=== PATIENT | female | born 1980 | race Caucasian/White ===

== ENCOUNTER 2024-08-15 16:00 | Emergency (ER) | payer MEDICARE, MEDICAID, SELFPAY ==
--- NOTE | ~2024-08-15 | XR_ITS ---
CHEST RADIOGRAPH, PA AND LATERAL CLINICAL HISTORY: chest pain . COMPARISON: None available TECHNIQUE: PA and lateral views of the chest. FINDINGS The cardiomediastinal silhouette is unremarkable. The lungs are clear. Visualized osseous structures and soft tissues are unremarkable. IMPRESSION: No focal infiltrate or effusion. Reviewed, dictated and finalized at location A.
[2024-08-15 16:10] VITALS: BP 149/100; PULSE 83; RESP 16; TEMP 36.6; O2SAT 99
--- NOTE | 2024-08-15 16:14 | ECG_ITS ---
Test Date: 2024-08-15 16:16:42 Measurements Intervals [place] Rate: 77 P: 22 SD: 184 QRS: 17 QRSD: 81 T: 30 QT: 372 QTc: 423 Interpretive Statements SINUS RHYTHM NONSPECIFIC T-WAVE ABNORMALITY ABNORMAL ECG No previous ECG available for comparison Electronically Signed On 08-16-2024 12:12:02 CDT by Bereket Bird M.D.
[2024-08-15 16:38] LABS: Basophils Percent Auto 0.5 % (0.2-1.2); Eosinophils Absolute Auto 0.1 K/mm3 (0-0.3); Eosinophils Percent Auto 2.1 % (0-4.4); Hematocrit 43.9 % (37.0-47.0); Hemoglobin 14.1 g/dL (12.0-15.0); Immature Granulocyte Absolute 0.02 K/mm3 (0.00-0.031); Immature Granulocyte Percent A 0.3 % (0-0.5); Lymphocytes Absolute Auto 2.13 K/mm3 (0.9-3.2); Lymphocytes Percent Auto 34.4 % (18.3-44.2); Mean Corpuscular HGB Conc 32.1 g/dl (32-36); Mean Corpuscular Hemoglobin 29.9 pg (26-34); Mean Platelet Volume 9.6 fl (7.4-10.4); Monocytes Absolute Auto 0.6 K/mm3 (0.1-0.6); Neutrophils Absolute Auto 3.3 K/mm3 (1.3-6.7); Neutrophils Percent Auto 53.7 % (45.5-73.1); Platelet Count Result 233 k/mm3 (150-375); Red Blood Count 4.72 M/mm3 (4.2-5.4); Red Cell Distribution Width 13.2 % (11.5-14.5); White Blood Count 6.2 K/mm3 (4.5-10.0)
[2024-08-15 16:47] LABS: Alanine Aminotransferase 31 U/L (6-35); Albumin Level 4.8 g/dL (3.5-5.1); Alkaline Phosphatase 62 U/L (38-126); Anion Gap 10 mmol/L (4-12); Aspartate Amino Transferase 28 U/L (14-36); Bilirubin,Total 0.3 mg/dL (0.2-1.3); Blood Urea Nitrogen 10 mg/dL (7-17); Calcium 9.4 mg/dL (8.4-10.2); Carbon Dioxide 29 mmol/L (22-30); Chloride 102 mmol/L (98-107); Estimated Glomerular Filt Rate > 60; Glucose 96 mg/dL (65-110); Lipase 39 U/L (23-300); Potassium 3.8 mmol/L (3.4-5.0); Sodium 141 mmol/L (137-145)
[2024-08-15 16:50] LABS: Partial Thromboplastin Time 23.3 Seconds (22.3-36.8)
--- NOTE | 2024-08-15 16:50 | ED.CHESTPAIN ---
HPI - Chest Pain General Chief Complaint: Chest Pain Stated Complaint: Sharp Chest pain since Wednesday Focused HPI: This is a 43-year-old female who presents to the ED for chief complaint of chest pain intermittent over the past 6 months. States that worsened today after she blew her nose. Reports of pain to the left side of the chest and it does not radiate. Denies association with nausea, vomiting, syncope, diaphoresis, numbness, weakness. She thinks the pain may be due to her recent medication changes regarding weight loss medications. Denies heart history or history of diabetes. She does smoke cigarettes. Denies recent illness, fevers, chills, shortness of breath, abdominal pain. GENERAL: Well-appearing, well-nourished, and in no acute distress. HEAD: Normocephalic, atraumatic. CHEST: Clear to auscultation. No respiratory distress. HEART: Regular rate and rhythm. NEURO: Alert and oriented x3. Patient screened in triage and initial orders placed. Additional care and disposition to be based upon diagnostic testing and treatment. Source: patient Mode of arrival: ambulatory Limitations: no limitations Related Data Allergies Allergy/AdvReac Type Severity Reaction Status Date / Time No Known Allergies Allergy Unverified 08/15/24 16:01 Course Vital Signs Vital signs: Vital Signs Temperature 97.8 F 08/15/24 16:10 Pulse Rate 83 08/15/24 16:10 Respiratory Rate 16 08/15/24 16:10 Blood Pressure 149/100 H 08/15/24 16:10 Pulse Oximetry 99 08/15/24 16:10 Temperature 97.8 F 08/15/24 16:10 Pulse Rate 83 08/15/24 16:10 Respiratory Rate 16 08/15/24 16:10 Blood Pressure 149/100 H 08/15/24 16:10 Pulse Oximetry 99 08/15/24 16:10 MDM - Chest Pain Lab Data 08/15/24 16:26 08/15/24 16:26 Labs: Lab Results 08/15/24 Range/Units 16:26 WBC 6.2 (4.5-10.0) K/mm3 RBC 4.72 (4.2-5.4) M/mm3 Hgb 14.1 (12.0-15.0) g/dL Hct 43.9 (37.0-47.0) % MCV 93.0 (80-100) fl MCH 29.9 (26-34) pg MCHC 32.1 (32-36) g/dl RDW 13.2 (11.5-14.5) % Plt Count 233 (150-375) k/mm3 MPV 9.6 (7.4-10.4) fl Immature Gran % (Auto) 0.3 (0-0.5) % Neut % (Auto) 53.7 (45.5-73.1) % Lymph % (Auto) 34.4 (18.3-44.2) % [place] % (Auto) 9.0 H (2.6-8.5) % Eos % (Auto) 2.1 (0-4.4) % Baso % (Auto) 0.5 (0.2-1.2) % Lymph # (Auto) 2.13 (0.9-3.2) K/mm3 [place] # (Auto) 0.6 (0.1-0.6) K/mm3 Eos # (Auto) 0.1 (0-0.3) K/mm3 Baso # (Auto) 0.0 (0.0-0.1) K/mm3 Abs Immat Gran (auto) 0.02 (0.00-0.031) K/mm3 Absolute Neuts (auto) 3.3 (1.3-6.7) K/mm3 Absolute Nucleated RBC 0.000 (0.0-0.012) K/mm3 Nucleated RBC % 0.0 (0.0-0.2) % PT Pending INR Pending APTT Pending Sodium 141 (137-145) mmol/L Potassium 3.8 (3.4-5.0) mmol/L Chloride 102 (98-107) mmol/L Carbon Dioxide 29 (22-30) mmol/L Anion Gap 10 (4-12) mmol/L BUN 10 (7-17) mg/dL Creatinine 0.81 (0.7-1.0) mg/dL Estim Creat Clear Calc Not Reportable Estimated GFR > 60 (59 - ) Glucose 96 (65-110) mg/dL Calcium 9.4 (8.4-10.2) mg/dL Total Bilirubin 0.3 (0.2-1.3) mg/dL AST 28 (14-36) U/L ALT 31 (6-35) U/L Alkaline Phosphatase 62 (38-126) U/L Troponin I Pending Total Protein 8.0 (6.3-8.2) g/dL Albumin 4.8 (3.5-5.1) g/dL Lipase 39 (23-300) U/L Discharge Plan Discharge Patient Language: Romanian Follow-up/Referrals: PHYSICIAN,DELIVERY ASSISTANT [Primary Care Provider] -
[2024-08-15 16:59] LABS: Troponin I < 0.012 ng/mL (0.000-0.034)
--- OUTSIDE RECORDS SUMMARY | 2024-08-15 17:50 | XMS_ITS | Data Portability ---
Author Organization [place] [facility], Main Office Address [address] [place] [address] Care Team Providers Care Shipping Order Clerk Name Role Phone MEEK HUNT Primary Care Provider MEEK HUNT Referring Provider EDNA CORONEL Metrology Technician SILVESTRE CAO Senior Technologist Assessment Encounter Date Assessment Date Assessment LastModified by Organization Details LastModified Time 05/16/2024 05/16/2024 This note is dictated and transcribed by [employer] Fluency Direct Software. Environmental Epidemiologist variances may occur. Despite proofreading, typographical errors may occur. Occasional wrong-word or '[id number]' substitutions may have occurred due to the inherent limitations of voice recording. Read the chart carefully and recognize, using context, where substitutions have occurred. [email or web address] Not available 05/16/2024 12:00:58 06/07/2024 06/07/2024 Time spent with patient included: preparing to see patient by reviewing tests, obtaining and reviewing history, medical examination and evaluation, counseling and educating the patient, ordering medications and tests, documenting clinical information in EHR, independently interpreting results and communicating results to the patient for a total of 45 minutes. Not available 06/07/2024 15:03:28 08/02/2024 08/02/2024 Time spent with patient included: preparing to see patient by reviewing tests, obtaining and reviewing history, medical examination and evaluation, counseling and educating the patient, ordering medications and tests, documenting clinical information in EHR, independently interpreting results and communicating results to the patient for a total of 40 minutes. Not available 08/02/2024 11:28:14 Plan of Treatment Reminders Order Date Submit Date Provider Last Modified By Organization Details Last Modified Time Details Appointments Post-Op 15 2024 10:00A M SHAHRZAD Smith Not available Not available Not available Any 15 2024 01:15P M Meek Hunt MD Not available Not available Not available Establish ed Patient 15 2024 02:15P M Silvestre Cao DPM Not available Not available Not available Procedure 15 2024 09:00A M Chandu Figueroa MD Not available Not available Not available Lab None recorded. Referral ENT surgery referral - Please call patient to schedule. 2024 025 [email or web address] 2 [facility], [address], [place], [address], 08/14/2024 08:57:41 Procedures None recorded. Surgeries tonsillec korina (SURG) 2024 025 [email or web address] Not available 06/30/2024 08:20:[address], chest, w/o contrast 2024 025 [facility], [address], [place], [address], 08/02/2024 16:56:08 MAMMO, screening , bilateral - Please call patient to schedule. [address], [address], [place], [address], 05/15/2024 09:07:34 CT, chest, w/o contrast - Please call patient to schedule. [address], [address], [place], [address], 05/15/2024 09:07:34 Medication Orders None recorded. Patient TargetsNo targets recorded. Patient Instructions Encounter Date Encounter Id Patient Instructions Last Modified By Organization Details Last Modified Time 04/12/2024 [id number] dementia rating scale-2* Not available 04/12/2024 14:10:04 depression screening* Not available 04/12/2024 14:10:04 alcohol misuse* Not available 04/12/2024 14:10:04 multi-dimensiona l health assessment questionnaire* Not available 04/12/2024 14:10:04 advance directiv es: care instructions Not available 04/12/2024 14:10:04 advance care planning: care instructions Not available 04/12/2024 14:10:04 [place] Advance Directives Not available 04/12/2024 14:10:04 Personalized Hea lt Plan and Screening Recommendations Advance Directives - Do you have one? No I recommend consulting with an [employer], family member, or friend to assist you. Advance Directives - Do we have your advance directive on file in your health record? No, please bring in a copy at your earliest convenience Primary Prevention/Interven tion (prevents or decreases the chance of common diseases from occurring) Smoking Risk: Smoker Refer to attached smoking cessation handouts Refer to attached handouts and prescription will be sent to pharmacy Continue to consider stopping smoking and call if we can assist you Alcohol Misuse Screening: Negative Weight: Appropriate Overwei ght Physical activity: Need more exercise/physical activity minimum of 10-20 minutes of activity that causes mild breathlessness/day Nutrition: Good Average Refer to attached handout Heart-Healthy Diet: After Your Visit Fall Risk (screened today): Low Vaccines Pneumococcal: Influenza: Chronic Disease Risks Stroke: Low Risk I have no recommendations Heart Attack: Low risk I have no recommendations Clogging of the Arteries: Low risk I have no recommendations Diabetes: Low Risk I have no recommendations Secondary Prevention/Interven tion (detects treatable diseases before they may cause symptoms, disability, or ) Breast Cancer Screening with mammogram: Your next mammogram: Ordered Recommended today Cervical/Uterine/Ov sivan Cancer Screening: Your next PAP/pelvic in: Referral to cop examiner Recomm ended today Osteoporosis Screening: No screening necessary Date Screening Last Performed: Colon Cancer Screening: No screening necessary Date Screening Last Performed: Eye Disease Screening: Ordered Recommended today Dementia Risk: Low I have no recommendations Depression Screening: Negative Active diagnosis, Continue current treatment plan [email or web address] Not available 04/12/2024 13:01:05 Reason for Referral ENT Surgery Referral for Enl arged tonsil Please call patient to schedule. Referring Physician: Edna Coronel, Pulmonary Disease, Encounter Date: 06/07/2024 Results Created Date Observation Date Name Description Value Unit Range Abnormal Flag Note LastModifiedBy Organization Detail LastModifiedTime 03/15/2002/07/2016 polys omnog sharyn, diagn ostic , 6 yrs or older No observ ation record ed. [email or web address] Not Available 2023 13:50:09 03/15/20 24 08/15/2016 polys omnog sharyn, titra tion study No observ ation record ed. [email or web address] Not Available 2023 13:50:10 03/15/20 24 03/14/2016 polys omnog sharyn, titra tion study No observ ation record ed. [email or web address] Not Available 2023 13:50:10 03/15/20 24 03/09/2024 XR, chest , 2 view No observ ation record ed. [email or web address] [facility] [place] [address] [place], [address], 03/22/2024 13:50:11 03/27/20 24 03/20/2024 polys omnog sharyn, split night No observ ation record ed. [email or web address] [facility] [address] [place], [address], 03/30/2024 09:46:18 03/29/20 24 04/13/2023 CT, abdom en + pelvi s, w/ contr ast No observ ation record ed. [email or web address] Not Available 2023 09:46:19 Result Notes None recorded. Problems Name Problem SNOMED Code Status Onset Date Resolution Date Notes Provider Name and Address Organization Details Recorded Time Hypothyro idism 97252290 Active 2022 YUNG Galvan, [facility] 3 10:54:53 Pneumonia 745127404 Completed 202205/18/2023 Stevo Gonzalez MD [address] [facility], [place], [address] , [facility] 4 11:08:48 Bipolar disorder 63197715 Active 2022 Salina Garciabe an RMA null, [place] [facility] 3 10:54:42 History of drug abuse 253389384 Active 2022 Salina Stmarlonbe an, RMA null, [place] [facility] 3 10:54:51 Obesity 840083203 Active 2022 Salina Stuffpricebe an, RMA null, [place] [facility] [place] [facility] 3 10:54:58 Sleep apnea 32934928 Active 2022 Salina Stuffpricebe an, RMA null, [place] [facility] 3 10:56:56 Smoker 15528645 Active 2022 Salina Stuffpricebe an, RMA null, [facility] 3 10:56:58 Gallstone 102710253 Active 2022 Salina Stuffpricebe an, RMA null, [facility] 3 10:54:46 Plantar wart of left foot 812806237243 53397 Active 2022 Meek Hunt MD [address], [address] [place] [address] [facility] 3 11:11:11 Allergic rhinitis 14605721 Active 2023 Salina niño, RMA null, [facility] 4 11:32:54 Multiple nodules of lung 267187645 Active 2023 Salina Stufflebe an, RMA null, [facility] 4 11:52:35 Constipat ion 16594535 Active 2023 Salina Stuffpricebe an, RMA null, [place] [facility] 4 11:52:35 Dystrophi a unguium 68861025 Active 2023 Silvestre Cao DPM [address], [address], [place], [address], [facility] 4 12:00:59 Obstructi ve sleep apnea syndrome 99304465 Active 2024 Edna Coronel NP [address], [address], [place], [address], [facility] 5 14:21:27 Hypersomn ia with sleep apnea 66323392 Active 2024 Edna Coronel NP [address], [address], [place], [address], [facility] 5 14:22:25 Enlarged tonsil 426136867 Active 2024 Edna Coronel NP [address], [address], [place], [address], [facility] 5 14:28:39 Chronic tonsillit is 79991889 Active 2024 Chandu Figueroa MD [address], [address], [place], [address], [facility] 5 15:22:15 Notes:[facility] diagnostic sleep study 02/07/16 sleep onset = 3.5 minutes, REM onset = 99 minutes, AHI = 46, REM AHI = 56, supine RDI = 66, PLMI = 2 [facility] titration sleep study 03/14/16 sleep onset = 2 minutes, REM onset = 90 minutes, ResMed Loya FX nasal pillows @ 8 cmH2O, PLMI = 0.0 [facility] titration sleep study 08/15/16 sleep onset = 6 minutes, REM onset = 47 minutes, ResMed Loya FX nasal pillows @ 9 cmH2O, PLMI = 0.0 [facility] split sleep study 03/20/24 sleep onset = 10.5 minutes, REM onset = 87 minutes, AHI = 20, REM AHI = 40, ResMed small AirFit F20 full face mask @ 14-17 cmH2O Medical History: Nicotine use Bipolar depression Rhinitis Bibasilar atelectasis Persistent early REM onset Obesity with mod OSAHS, AHI = 20, 03/20/24, on autoCPAP c/o IVRC Hypothyroidism Hepatitis C Cholelithiasis Procedure History: 2004, 2013 Problem Notes None recorded. Procedures Surgical History Date Name Laterality Status Provider Name and Address Organization Details Recorded Time 04/12/20 Medicare Wellness CPT Code, subsequent completed Azeb Michaud RN [facility] [employer] [employer] [facility] 04/12/2024 12:45:17 04/12/20 Advanced Care Planning completed Azeb Michaud RN [facility] [employer] [facility] 04/12/2024 12:52:49 01/26/20 Toenail avulsion completed Silvestre Cao DPM [address], [place], [address], [facility] [employer] [facility] [employer] 01/26/2024 11:23:03 10/12/19 24 Nail Debridement completed Silvestre Cao DPM [address], [place], [address], [facility] [employer] [facility] [employer] 10/12/2023 13:13:21 10/12/19 24 Destruction lesion (cryo, hyfrecation, scissors or chemical) completed Silvestre Cao DPM [address], [address], [place], [address], [facility] [employer] [facility] 10/12/2023 13:14:23 08/03/19 24 wart canthrone procedure completed Silvestre Cao DPM [address], [place], [address], [facility] [employer] [facility] 08/03/2023 15:23:03 07/20/19 24 wart canthrone procedure completed Silvestre Cao DPM [address], [place], [address], [facility] [employer] [facility] 07/20/2023 11:36:12 delivery completed Sue Schroeder [facility] [employer] [facility] 07/20/2023 10:34:35 Imaging Results Imaging Date Name Status LastModified by Organ atpending sale to [facility] Details LastModified Time 02/07/2016 polysomnogram, diagnostic, 6 yrs or older [place] [email or web address] Information not available 03/22/2024 13:50:09 08/15/2016 polysomnogram, titration study completed Information not available 03/22/2024 13:50:10 03/14/2016 polysomnogram, titration study completed Information not available 03/22/2024 13:50:10 03/09/2024 XR, chest, 2 view completed [email or web address] [facility] [address] [place], [address], 03/22/2024 13:50:11 03/20/2024 polysomnogram, split night completed [email or web address] [facility] [address] [place], [address], 03/30/2024 09:46:18 04/13/2023 CT, abdomen + pelvis, w/ contrast completed Information not available 03/30/2024 09:46:19 Procedure Notes None recorded. Medical Equipment None Reported. Allergies No known drug allergies Medications Name Sig Start Date Stop Date Status Note LastModified by Organization Details LastModified Time levothyro xine 175 mcg tablet TAKE 1 TABLET BY MOUTH EVERY DAY active Not Available Not Available No t Available levothyro xine 137 mcg tablet TAKE 1 TABLET BY MOUTH EVERY DAY active Not Available Not Available No t Available cetirizin e 10 mg tablet TAKE 1 TABLET BY MOUTH EVERY DAY 12/29 completed Not Available Not Available Not Available azithromy tima 250 mg tablet TAKE 2 TABLETS BY MOUTH TODAY, THEN TAKE 1 TABLET DAILY FOR 4 DAYS 05/17 completed Not Available Not Available Not Available senna 8.6 mg tablet TAKE 4 TABLETS BY MOUTH TWICE A DAY 04/21 completed Not Available Not Available Not Available ondansetr on 8 mg disintegr ating tablet DISSOLVE 1 TABLET ON THE TONGUE 3 TIMES DAILY NEEDED 12/29 completed Not Available Not Available Not Available cephalexi n 500 mg capsule TAKE 1 CAPSULE BY MOUTH EVERY 12 HOURS FOR 10 DAYS 05/17 completed Not Available Not Available Not Available levothyro xine 150 mcg tablet TAKE 1 TABLET BY MOUTH EVERY DAY 03/09 completed Not Available Not Available Not Available levofloxa tima 750 mg tablet Take 1 tablet every day by oral route. 05/17 completed Not Available Not Available Not Available methylpre dnisolone 4 mg tablets in a dose pack TAKE 1 DOSE PACK BY ORAL ROUTE. DIRECTED PER PACKAGE 04/21 completed Not Available Not Available Not Available albuterol sulfate HFA 90 mcg/actua tion aerosol inhaler INHALE 2 PUFFS BY MOUTH 4 TIMES A DAY 07/19 completed Not Available Not Available Not Available ketoconaz ole 2 % topical cream APPLY TO THE AFFECTED AREA(S) right great toenail BY TOPICAL ROUTE ONCE DAILY 06/07 completed Not Available Not Available Not Available fluticaso ne propionat e 50 mcg/actua tion nasal spray,stefani pension SPRAY 1 SPRAY INTO EACH NOSTRIL EVERY DAY 2023 active MIROSLAVA 04/12/24 NOV 08/09/24 ok to rf Not Available Not Available Not Available amoxicill in 875 mg-potass ium clavulana te 125 mg tablet TAKE 1 TABLET BY MOUTH 2 TIMES A DAY FOR 7 DAY 12/29 completed Not Available Not Available Not Available neomycin- polymyxin -hydrocor t 3.5 mg-10,000 unit/mL-1 % ear drops,stefani p 3 DROPS IN RIGHT EAR FOUR TIMES A DAY X 7 DAYS 12/29 completed Not Available Not Available Not Available bupropion HCl SR 200 mg tablet,12 hr sustained -release TAKE ONE Tablet BY MOUTH TWICE DAILY (IN THE MORNING AND IN THE EVENING) active Not Available Not Available No t Available bupropion HCl XL 300 mg 24 hr tablet, extended release TAKE 1 TABLET BY MOUTH ONCE A DAY FOR DEPRESSI ON 07/19 completed Not Available Not Available Not Available bupropion HCl XL 150 mg 24 hr tablet, extended release TAKE ONE TABLET BY MOUTH EVERY DAY 07/19 completed has been increase d to 200mg BID Not Available Not Available Not Available Wellbutri n SR 12/29 completed Not Available Not Available Not Available methadone (bulk) Once a day 60mg active Not Available Not Available No t Available Invega Sustenna 156 mg/mL intramusc ular syringe active Not Available Not Available Not Available Invega Sustenna 234 mg/1.5 mL intramusc ular syringe 08/31 completed Not Available Not Available Not Available Senexon-S 8.6 mg-50 mg tablet TAKE 2 TABLETS BY MOUTH EVERY DAY 2024 active Not Available Not Available Not Avai lable Linzess 290 mcg capsule TAKE 1 CAPSULE BY MOUTH EVERY DAY active Not Available Not Available No t Available Ozempic 0.25 mg or 0.5 mg (2 mg/3 mL) subcutane ous pen injector Inject 0.25 mg every week by subcutan eous route. 08/02 completed Not Available Not Available Not Available Zepbound 2.5 mg/0.5 mL subcutane ous pen injector INJECT 2.5MG SUBCUTAN EOUSLY ONE TIME PER WEEK 2024 active Not Available Not Available Not Maggy kohler Vitals Date Recorded Body weight Body mass index (BMI) Body height Body temperature Heart rate Oxygen saturation Oxygen saturation in Arterial blood by Pulse oximetry Systolic blood pressure Diastolic blood pressure Provider Name and Address Organization Details Last Updated DateTime 4 987546. 61 g 43.4 kg/m2 165.1 cm 97.2 [degF] 81 /min 93 % 93 % 132 mm[Hg] 82 mm[Hg] YUNG Galvan [facility] 11:52:09 Date Recorded Pain severity - 0-10 verbal numeric rating [Score] - Reported Provider Name and Address Organization Details Last Updated DateTime 04/12/2024 0 Azeb Michaud RN [facility] 04/12/2024 12:46:01 Date Recorded Body height Body mass index (BMI) Body weight Heart rate Respiratory rate Oxygen saturation Oxygen saturation in Arterial blood by Pulse oximetry Systolic blood pressure Diastolic blood pressure Provider Name and Address Organization Details Last Updated DateTime 4 165.1 cm 43.4 kg/m2 624609. 61 g 97 /min 14 /min 99 % 99 % 114 mm[Hg] 63 mm[Hg] Sue Schroeder [facility] [employer] 4 11:55:05 Date Recorded Body height Body mass index (BMI) Body weight Body temperature Heart rate Oxygen saturation Oxygen saturation in Arterial blood by Pulse oximetry Systolic blood pressure Diastolic blood pressure Provider Name and Address Organization Details Last Updated DateTime 5 165.1 cm 45 kg/m2 914790. 1 g 98.1 [degF] 82 /min 96 % 96 % 118 mm[Hg] 72 mm[Hg] Jodee Landeros MA [facility] 14:16:06 Date Recorded Body height Body mass index (BMI) Body weight Body temperature Provider Name and Address Organization Details Last Updated DateTime 06/29/2024 165.1 cm 44.4 kg/m2 237809.16 g 97.7 [degF] Analilia Garcia RN [facility] 06/29/2024 15:17:00 Date Recorded Body height Body mass index (BMI) Body weight Body temperature Heart rate Oxygen saturation Oxygen saturation in Arterial blood by Pulse oximetry Systolic blood pressure Diastolic blood pressure Provider Name and Address Organization Details Last Updated DateTime 165.1 cm 43.9 kg/m2 462048. 39 g 97.7 [degF] 73 /min 98 % 98 % 116 mm[Hg] 76 mm[Hg] Nidhi Mckeon MA [facility] 11:00:35 Social History Question Answer Notes LastModified by Organizat ion Details LastModified Time Tobacco Smoking Status Current Every Day Smoker Capo Connell CMA null, [facility] 04/21/2023 11:23:20 Do You Have An Advance Directive? No Provided Paperwork 04/12/2024 [email or web address] Information not available 04/12/2024 What Is Your Level Of Alcohol Consumption? None [email or web address] Information not available 04/21/2023 If You Are , What Was Your Level Of Alcohol Consumption Prior To ? None Information not available 07/20/2023 Is Blood Transfusion Acceptable In An Emergency? Yes [email or web address] Information not available 04/12/2024 What Is Your Level Of Caffeine Consumption? Heavy [email or web address] Information not available 04/12/2024 In The 14 Days Before Symptom Onset, Have You Had Close Contact With A Laboratory-confi rmed COVID-19 While That Case Was Ill? No Information not available 06/07/2024 In The 14 Days Before Symptom Onset, Have You Had Close Contact With A Person Who Is Under Investigation For COVID-19 While That Person Was Ill? No Information not available 06/07/2024 Are You Currently Employed? Yes [email or web address] Information not available 03/09/2024 What Type Of Diet Are You Following? REGULAR [email or web address] Information not available 04/21/2023 What Is The Highest Grade Or Level Of School You Have Completed Or The Highest Degree You Have Received? [id number] [email or web address] Information not available 04/12/2024 Do You Have An Electrostatic Air Filter? No Information not available 06/07/2024 What Is Your Occupation? [employer] [email or web address] Information not available 03/09/2024 How Many Days Of Moderate To Strenuous Exercise, Like A Brisk Walk, Did You Do In The Last 7 Days? 0 [email or web address] Information not available 04/12/2024 Have You Been Exposed To Chemicals Or Toxins? No Not That Aware Of Information not available 06/07/2024 Have There Been Any Changes To Your Family Or Social Situation? Yes Lost Mother In August 2023 [email or web address] Information not available 04/12/2024 What Is The Fluoride Status Of Your Home? Fluoridated [email or web address] Information not available 04/12/2024 Are There Any Guns Present In Your Home? No [email or web address] Information not available 04/12/2024 Do You Use Insect Repellent Routinely? No [email or web address] Information not available 04/12/2024 Where Do You Live? Apartment [email or web address] Information not available 04/21/2023 Do You Have A Medical Power Of [employer]? No [email or web address] Information not available 04/12/2024 Do You Have Moisture Problems In Your Home? No Information not available 06/07/2024 What Was The Date Of Your Most Recent Tobacco Screening? 08/02/2024 Information not available 08/02/2024 How Many Children Do You Have? 3 [email or web address] Information not available 03/09/2024 What Is Your Current Pack Years? 20-29packyears [email or web address] Information not available 04/12/2024 Do You Have Any Pets? Yes 1 Cat [email or web address] Information not available 03/09/2024 What Is Your Relationship Status? [email or web address] Information not available 04/12/2024 Do You Use Your Seat Belt Or Car Seat Routinely? Yes [email or web address] Information not available 04/12/2024 Are You Sexually Active? No [email or web address] Information not available 04/12/2024 Do You Have Smoke And Carbon Monoxide Detectors In Your Home? Yes [email or web address] Information not available 04/21/2023 At What Age Did You Start Smoking Tobacco? 14 [email or web address] Information not available 04/21/2023 Are You Passively Exposed To Smoke? Yes [email or web address] Information not available 04/21/2023 Are There Any Smokers In Your House? No [email or web address] Information not available 04/21/2023 How Much Tobacco Do You Smoke? 1 PPD [email or web address] Information not available 04/21/2023 What Types Of Sporting Activities Do You Participate In? None [email or web address] Information not available 04/12/2024 Do You Feel Stressed (tense, Restless, Nervous, Or Anxious, Or Unable To Sleep At Night)? [id number] [email or web address] Information not available 04/12/2024 Do You Use Any Illicit Or Recreational Drugs? No [email or web address] Information not available 04/21/2023 Do You Use Sunscreen Routinely? No [email or web address] Information not available 04/21/2023 Has Tobacco Cessation Counseling Been Provided? Yes Information not available 04/21/2023 Have You Recently Traveled Abroad? No [email or web address] Information not available 04/12/2024 Do You Have Any Dietary Restrictions? No Information not available 04/21/2023 Do You Or Have You Ever Used Any Other Forms Of Tobacco Or Nicotine? No Information not available 07/20/2023 Sex: Unknown Functional Status Question Answer Note LastModified by Organization D etails LastModified Time What is your exercise level? None Information not available 04/21/2023 Mental Status None recorded. Family History Relationship Description Onset Age of this Age Resolved Age Notes LastModified by Organization Details LastModified Time Unspecified Relation Family history of stroke [email or web address] Not available 2023 10:33:36 Unspecified Relation Heart disease [email or web address] Not available 2023 10:33:57 Unspecified Relation Blood coagulation disorder [email or web address] Not available 2023 10:34:05 Mother Hypertensive disorder [email or web address] Not available 2023 10:33:45 Mother Heart disease [email or web address] Not available 2023 10:33:57 Notes:NO ENT Medical History Condition Response HEPATITIS / LIVER DISEASE Y HYPOTHYROIDISM Y DEPRESSION (INCLUDING POST ) Y SLEEP DISORDER Y THYROID DISEASE Y OBESITY Y Gynecological HistoryNo gynecological history recorded. Obstetrics History GPAL:G 0 P 0 0 0 0 Immunizations Vaccine Type Date Status Note Provider Nam e and Address Organization Details Recorded Time Influenza, split virus, trivalent, PF 04/12/2024 completed Meek Hunt MD [address] [facility], [place], [address], [facility] [employer] 04/12/2024 14:09:51 Past Encounters Encounter ID Performer Location Encounter Start Date Encounter Closed Date Diagnosis/Indication Diagnosis SNOMED-CT Code Diagnosis ICD10 Code Diagnosis Note [id number] Meek Hunt MD [facility] Internal [facility] [address] [place] [address] 04/21/2023 11:00:03 04/21/2023 11:51:28 Hypothyroidism 95926554 E03.9 Adult heal th examination 282305524 Z00.00 Z13.220 mammogram - never had Pneumonia 878255167 J18. 9 change to levaquin Bipolar disorder 6800048 4 F31.9 under control History of drug abuse 37 5969826 F19.11 on methadone program Obesity 659095216 E66.9 advised to lose Sleep apnea 33914758 G47 .30 needs cpap Smoker 85272698 F17.200 advised to quit Multiple n odules of lung 768874891 R91.[address] in 3 months Gallstone 738330064 K80. 20 asymptomat ic [id number] Meek Hunt MD [facility] Internal [facility] [address] [place] [address] 05/18/2023 10:47:58 05/18/2023 11:15:37 Plantar wart of left foot 9855617692 2213775 B07.0 Severe dry skin 92740505 2 L85.3 cera ve hydrating lotion samples [id number] Meek Hunt MD [facility] Internal Med [place] [address] [place] [address] 07/19/2023 10:00:01 07/19/2023 11:05:18 Hypothyroidism 77654604 E03.9 LABS Adult heal th examination 486603599 Z00.00 Z13.220 Bipolar disorder 3647159 4 F31.9 under control History of drug abuse 37 1661296 F19.11 on methadone program Obesity 540487661 E66.9 advised to lose Sleep apnea 64723802 G47 .30 needs cpap Smoker 40992951 F17.200 advised to quit Multiple n odules of lung 039148624 R91.[address] in 3 months Gallstone 393642447 K80. 20 asymptomat ic Screening mammography 24 920234 Z12.31 Constipation 84351998 K5 9.00 she needs 4-6of senokot daily, will try Linzess 290 mg qd, samples [id number] Silvestre Cao DPM [facility] Podiatry [address], [place] [address] 07/20/2023 10:03:37 07/22/2023 09:25:03 Plantar wart of left foot 1374717904 3862984 B07.0 treated today with debridemen t and applicatio n of salicylic aicd 30% with band aidtreatme nt options reviewedpt to apply daily otc compound W twice daily with band aid until blistering occursafte r blistering apply daily wound care and keep clean to prevent infectionf ollow up in one week Pain in left foot 906263 4647 00777 M79.091 [id number] Silvestre Cao DPM [facility] [address], [address] [address] 08/03/2023 12:27:21 08/04/2023 13:56:14 Plantar wart of left foot 6404708783 8880970 B07.0 treated today with debridemen t with band aidtreatme nt options reviewedpt to apply daily otc compound W twice daily with band aid until blistering occursafte r blistering apply daily wound care and keep clean to prevent infectionf ollow up in one week Pain in left foot 891395 2498 79796 M79.468 [id number] Silvestre Cao DPM [facility] [address], [address] [address] 10/12/2023 11:39:03 10/12/2023 13:30:20 Plantar wart of left foot 3441458782 5971933 B07.0 treated today with debridemen t with band aidtreatme nt options reviewedpt to apply daily otc compound W twice daily with band aid until blistering occursafte r blistering apply daily wound care and keep clean to prevent infectionf ollow up in one week Dystrophia unguium 00202 009 L60.3 right great toenailpar tial avulsion, non adhered to nailbedrev iewed treatment options, pt elects to proceed with total nail avulsion of great toe, right [id number] Meek Hunt MD [facility] [address] [facility] [place] [address] 12/30/2023 10:35:45 12/30/2023 11:37:29 Hypothyroidism 72530213 E03.9 LABS Bipolar disorder 1343635 4 F31.9 under control History of drug abuse 37 5024109 F19.11 on methadone program Obesity 424317994 E66.9 advised to lose Sleep apnea 45094118 G47 .30 needs cpap, will refer Smoker 38580826 F17.200 advised to quit Multiple n odules of lung 956126428 R91.[address] to [address] the [address] scan, willing Gallstone 555930034 K80. 20 asymptomat ic Adult heal th examination 605632518 Z00.00 Z13.220 Mammogram- Ordered againFLU- Does not rememberCO VID- has had 2 injections Screening mammography 24 823092 Z12.31 Constipation 85029821 K5 9.00 meds help [id number] Silvestre Cao DPM [facility] Podiatry [address], [address] [place] [address] 01/26/2024 10:42:21 01/26/2024 15:45:52 Dystrophia unguium 28938481 L60.3 right great toenailTot al avulsion, today- performed without incidentwo und care and dressing changes reviewed with the patientmon itor for signs of infection at present seek medical attention immediatel yFollow-up 1 week [id number] Silvestre Cao DPM [facility] [address], [address] [place] [address] 02/03/2024 12:00:15 02/23/2024 15:04:18 Dystrophia unguium 43997243 L60.3 right great toenailTot al avulsion, healedwoun d care and dressing changes reviewed with the patientmon itor for signs of infection at present seek medical attention immediatel yFollow-up 2 months [id number] Silvestre Cao DPM [facility] [address], [facility] [address] [place] [address] 02/17/2024 10:54:06 02/18/2024 08:42:45 Dystrophia unguium 19827608 L60.3 right great toenailTot al avulsion, HealedDC wound careapply topical ketoconazo le to the nail bed and nail plate as it regrowsmon itor for signs of infection at present seek medical attention immediatel yFollow-up 3 months [id number] Edna Coronel NP [facility] Pulmonolo gy [address] [place] [address] 03/09/2024 11:11:13 03/10/2024 14:06:48 Sleep apnea 49663933 G47.30 G47.33 Sleep study order today-hx of + sleep study-will do split nightDiscu ssed sleep hygeineAdv ised good sleep habits and patterns:- Set a goal for at least 7 to 8 hours of sleep time per day-Use the bed mainly for sleep and to go to bed only when tired. If unable to fall asleep after 30 minutes, patient should get out of bed but should not engage in any activity that requires sustained mental alertness. -Maintain a bedtime and wake-up time even on weekends or day off of work.-Avoi d excessive naps during the daytime. If a nap is necessary, limit to no more than 30 minutes.-M inimize enviroment al noise, bright lights, and extremties in bedroom temperatur es.-Avoid alcohol, caffeinate d beverages, and nicotine products for at least 6 hours prior to bedtime.-A void strenuous exercise and large meals for at least 4 hours prior to bedtime.-D iscussed reportable signs and symptoms of concernFol low-up after sleep study done Dyspnea on exertion 6084 5006 R06.09 Lab work todayPFT for baselineEn courage patient to remain activefoll ow-up once testing is complete-s ooner for any changes in breathing and increase use of inhaler Cigarette smoker 3404901 7 F17.210 Patient is a smoker and has been counseled to quit. We discussed the many reasons to quit smoking. We discussed the various methods of smoking cessation. Total time with patient counseling patient 5 minutes. [id number] Edna Coronel NP [facility] Pulmonolo gy [place] [address] [address] 03/30/2024 14:57:58 03/30/2024 15:53:03 Sleep apnea 23049566 G47.30 G47.33 ESS-22poly somnogram with titration done-03/19 24-sleep study: AHI-20 and REM AHI-40 with O2 desat-bhakti y REM onset (may need to consider nacropleps y)Follow with Primary for labsDiscus sed sleep hygeineAdv ised good sleep habits and patterns:- Set a goal for at least 7 to 8 hours of sleep time per day-Use the bed mainly for sleep and to go to bed only when tired. If unable to fall asleep after 30 minutes, patient should get out of bed but should not engage in any activity that requires sustained mental alertness. -Maintain a regular bedtime and wake-up time even on weekends or day off of work.-Avoi d excessive naps during the daytime. If a nap is necessary, limit to no more than 30 minutes.-M inimize enviroment al noise, bright lights, and extremitie s in bedroom temperatur es.-Avoid alcohol, caffeinate d beverages, and nicotine products for at least 6 hours prior to bedtime.-A void strenuous exercise and large meals for at least 4 hours prior to bedtime.-D iscussed reportable signs and symptoms of concernRec ommend new machine at 5 year uli, plans to repeat home sleep study as needed with changes in condition. Follow-up in 3 months [id number] Meek Hunt MD [facility] [address] [place] [address] 04/12/2024 11:42:26 04/12/2024 12:44:20 Hypothyroidism 46812414 E03.9 under conrol Bipolar disorder 2050607 4 F31.9 under control History of drug abuse 37 0312563 F19.11 on methadone program Obesity 543111877 E66.9 advised to lose, watch diet Sleep apnea 20856611 G47 .30 needs cpap, Smoker 62340310 F17.200 advised to quit, willing , will let me know if needs meds Multiple n odules of lung 513308505 R91.8 discussed to get the Ct scan, discussed again Gallstone 904481879 K80. 20 asymptomat ic Adult heal th examination 398216206 Z00.00 Z13.220 Mammogram- Ordered againFLU- Does not rememberCO VID- has had 2 injections Screening mammography 24 585186 Z12.31 Constipation 14151634 K5 9.00 meds help Administra tion of influenza vaccine 21204169 Z23 Screening for disorder 767860536 Z13.9 [id number] Silvestre Cao DPM [facility] [place] [address] [facility] [place] [address] 05/16/2024 11:52:29 05/26/2024 15:21:25 Dystrophia unguium 20668925 L60.3 right great toenailmay DC ketoconazo leNail is regrowing normal in nature allow to continue to completely regrownFol low-up as needed [id number] Edna Coronel NP [facility] Pulmonolo gy [place] [address] [facility] [address] [place] [address] 06/07/2024 13:57:49 06/07/2024 14:56:47 Obstructive sleep apnea syndrome 83120296 G47.33 ESS-24poly somnogram 02/2024- eep study: AHI-20 and REM AHI-40 with O2 desat-bhakti y REM onset (may need to consider narcolepsy )Will change settings to wider parameter- 8-20 cm H2O to see if this resolves the intoleranc e to the pressure-p atient is insisting she does not want CPAP-advis ed to try new settings and will send to ENT for enlarged tonsils and can discuss InspireDo advise weight loss-patie nt notes insurance is an issue-did talk with her primary and can only get medication if she is diabetic-p atient does have sleep apnea and this is now a recognized ICD 10 for GLP 1's-advise d patient to call her insurance to see if they will cover for thisFollow with Primary for labsDiscus sed sleep hygeineAdv ised good sleep habits and patterns:- Set a goal for at least 7 to 8 hours of sleep time per day-Use the bed mainly for sleep and to go to bed only when tired. If unable to fall asleep after 30 minutes, patient should get out of bed but should not engage in any activity that requires sustained mental alertness. -Maintain a regular bedtime and wake-up time even on weekends or day off of work.-Avoi d excessive naps during the daytime. If a nap is necessary, limit to no more than 30 minutes.-M inimize enviroment al noise, bright lights, and extremitie s in bedroom temperatur es.-Avoid alcohol, caffeinate d beverages, and nicotine products for at least 6 hours prior to bedtime.-A void strenuous exercise and large meals for at least 4 hours prior to bedtime.-D iscussed reportable signs and symptoms of concernRec ommend new machine at 5 year lui, plans to repeat home sleep study as needed with changes in condition. Follow-up in 2 months-if no improvemen t of fatigue and is doing better with CPAP will consider MLST for nacrolepsy -if not tolerating CPAP will refer for Inspire or mandibular device Enlarged tonsil 17634712 2 J35.1 referral to ENT [id number] Chandu Figueroa MD [facility] ENT [place] [address] [place] [address] 06/29/2024 14:49:25 06/29/2024 16:50:58 Chronic tonsillitis 77033291 J35.01 [id number] Edna Coronel NP [facility] Pulmonolo gy [place] [address] [facility], [facility] [address] [place] [address] 08/02/2024 10:46:03 08/02/2024 16:56:08 Obstructive sleep apnea syndrome 79027070 G47.33 ESS-20poly somnogram 02/2024-sl eep study: AHI-20 and REM AHI-40 with O2 desat-bhakti y REM onset (may need to consider narcolepsy )Even with changed settings to wider parameter- 8-20 cm H2O patient notes unable to tolerate CPAPShe will call her insurance to discuss Inspire or mandibular device-she is also on Zepbound now-at this point she should have her tonsils removed as scheduled- work on weight loss-she will call after discussing with insurance on referral for Inspire or mandibular device.Fol low with Primary for labsDiscus sed sleep hygeineAdv ised good sleep habits and patterns:- Set a goal for at least 7 to 8 hours of sleep time per day-Use the bed mainly for sleep and to go to bed only when tired. If unable to fall asleep after 30 minutes, patient should get out of bed but should not engage in any activity that requires sustained mental alertness. -Maintain a regular bedtime and wake-up time even on weekends or day off of work.-Avoi d excessive naps during the daytime. If a nap is necessary, limit to no more than 30 minutes.-M inimize enviroment al noise, bright lights, and extremitie s in bedroom temperatur es.-Avoid alcohol, caffeinate d beverages, and nicotine products for at least 6 hours prior to bedtime.-A void strenuous exercise and large meals for at least 4 hours prior to bedtime.-D iscussed reportable signs and symptoms of concernRec donta new machine at 5 year uli, plans to repeat home sleep study as needed with changes in condition. Follow-up once she has decided to stay on CPAP-which at this time she does not want to do Multiple n odules of lung 917959844 R91.8 multiple nodules seen on Cat scan 03/2024-tr ee bud pattern-CT done at that time was for abd/pelvis so need better view of lung anatomy-oc casional sob with mild to moderate exercise-v ape and marijuana use in the past Health Concerns Section Related Observation LastModified by Organization Detai ls LastModified Time None Recorded Concern Status LastModified by Organization Details LastModified Time None Recorded Advance Directives Directive N: provided paperwork 2023 Payers Encounter Date Sequence Insurance Name Policy Number Policy Flores Covered Member ID Flores Member ID Guarantor Name 04/12/2024 1 [facility] (MEDICARE REPLACEMENT/A DVANTAGE - HMO) [id number] Haley Sinha [id number] Haley Sinha 04/12/2024 2 [place] [facility] Haley Sinha [id number] Haley Sinha 05/16/2024 1 [facility] (MEDICARE REPLACEMENT/A DVANTAGE - HMO) [id number] Haley Sinha [id number] Haley Sinha 05/16/2024 2 [place] [facility] Haley Sinha [id number] Haley Sinha 06/07/2024 1 [facility] (MEDICARE REPLACEMENT/A DVANTAGE - HMO) [id number] Haley Sinha [id number] Haley Sinha 06/07/2024 2 [place] [facility] Haley Sinha [id number] Haley Sinha 06/29/2024 1 [facility] (MEDICARE REPLACEMENT/A DVANTAGE - HMO) [id number] Haley Sinha [id number] Haley Sinha 06/29/2024 2 [place] [facility] Haley Sinha [id number] Haley Sinha 08/02/2024 1 [facility] (MEDICARE REPLACEMENT/A DVANTAGE - HMO) [id number] Haley Sinha [id number] Haley Sinha 08/02/2024 2 [place] [facility] Haley Sinha [id number] Haley Sinha Notes Date Note Type Note Provider Name and Address Organization Details Recorded Time 04/12/2024 text/html Pt is here to establish care.PT IS NOT FASTING ( [facility]/Medicaid ) Sleep apnea- had sleep study in 2016, was on cpap but did not use it and was taken away, still has symptoms. SLEEP STUDY HAS been done and getting another CPAPBipolar disorder- on wellbutrin, seeing a psychMeds- Bupropion 200mg BID, Invega injections Hypothyroidism- meds were adjusted,Meds- Levothyroxine 175 mcg daily, Smoker- 1ppd for years, CT chest in the ER 04/22, USED TO SMOKE 2 PPD, gets chest congestion and discofort some times Pulmonary nodules- seen on recent CT abd, CT WAS ORDERED BUT HAS NOT BEEN DONE, discussed againWas ordered but has not been done Obesity- has gained 2 lbs Chronic Constipation- Due to Methadone and would like Senna called in for her H/o Opiate abuse- on methadone program from a [facility]- Methadone daily Meek Hunt MD [address], [address], [place], [address], [facility] 04/12/2024 14:10:12 05/16/2024 text/html Patient is a 43-year-old female who returns the office for follow-up on toenail avulsion of the right great toenail the nail is about 25% regrown and is normal in nature there is no signs of infection to the toenail. Patient may discontinue ketoconazole. Patient denies any other complaints. Silvestre Cao DPM [address], [address], [place], [address], [facility] 05/16/2024 12:03:12 06/07/2024 text/html CPAP F/UReported bypatient.CPAPNo problems with CPAP; mask does not leak; no problems with sleep maintenance; does not remove CPAP mask during the night; does not wake up in the middle of the night with dry mouth; no snoring through the mask; no aerophagia; no abdominal discomfort; no skin irritation; no ear pain; no ear pressure; no nasal congestion; no headache; no memory loss;Problems with CPAP;trouble with sleep initiation;removes CPAP mask during the night;sleep related symptoms have remained the same with PAP use;does not wake up rested;excessive daytime sleepinessNotes:did not bring machine in today-wants to consider having tonsils out and consider Inspire or mandibular devicenotes pressure is too much at night and rips off the mask-does not like the feel of it-notes she stopped the ramp due to pressure just wasn't enough Edna Coronel NP [address], [place], [address], [facility] 06/07/2024 15:06:30 06/29/2024 text/html this patient has sleep apnea and is on CPAP. She was recommended for tonsillectomy. Chandu Figueroa MD [address], [facility] [address], [place], [address], [facility] [employer] [facility] [employer] 06/29/2024 15:22:46 08/02/2024 text/html CPAP F/UReported bypatient.CPAPNo problems with CPAP; mask does not leak; no problems with sleep maintenance; does not wake up in the middle of the night with dry mouth; no snoring through the mask; no aerophagia; no abdominal discomfort; no skin irritation; no ear pain; no ear pressure; no nasal congestion; no headache; no memory loss;Problems with CPAP;trouble with sleep initiation;removes CPAP mask during the night;sleep related symptoms have remained the same with PAP use;does not wake up rested;excessive daytime sleepinessNotes:Pat ient here for follow-up with little change-unable to wear mask due to anxiety-she awaits surgery for tonsils-while here patient also notes she had a CT done last year that she was told she had spots to her lungs that was reviewed and it does show multiple nodules with tree bud pattern but it is of the bases-she does note vape use and heavy marijuana use in the past. She notes dyspnea with mild to moderate exercise-no cough. Edna Coronel NP [address], [facility] [address], [place], [address], [employer] [facility] [employer] 08/02/2024 11:28:38 OBGyn Episode No OBEpisode recorded.
--- OUTSIDE RECORDS SUMMARY | 2024-08-15 17:50 | XMS_ITS | Encounter Summary ---
Author Organization [facility] Address [address] [facility] [place] [address] Care Team Providers Care Extractions Technologist Name Role Phone Clinic, [facility] Primary Care Provider [phone] Unknown, Provider Primary Care Provider [facility], [facility] Primary Care Pro vider Reason for Visit * Reason Onset Date Comments General 07/31/2011 Pt states she re ceived a letter from the Methadone clinic stating our resident had informed them she thought the pt was over medicated. Pt is very upset and has requested to not have to see this resident again. (MF) Pt requested for Underwriting Internship to phone her back as well. Message passed on to Pam Trevino. Encounter Details Date Type Department Care Team (Late st Contact Info) Description 07/31/2011 Telephone [facility]/ EVALUATION UNIT [address] [place] [address] [address] [place] [address] Clinic, [facility] [address] [place] [address] General (Pt states she received a letter from the Methadone clinic stating our resident had informed them she thought the pt was over medicated. Pt is very upset and has requested to not have to see this resident again. (MF) Pt requested for Underwriting Internship to phone her back as well. Message passed on to Pam Trevino.) Social History Tobacco Use Types Packs/Day Years Used Date Smoking Tobacco: Every Day Cigarettes 1 17 Smokeless Tobacco: Never Alcohol Use Standard Drinks/Week Comments No 0 (1 standard drink = 0.6 oz pur e alcohol) Comments Yes Sex and Gender Information Value Date Recorded Sex Assigned at Not on file Gender Identity Not on file Sexual Orientation Not on file documented as of this encounter Plan of Treatment Not on file documented as of this encounter Visit Diagnoses Not on filedocumented in this encounter Additional Health Concerns Infection Onset Date Last Indicated Resolved Time COVID-19 Under Investigation 11/10/2020 11/10/2020 11/10/2020 10:48 AM CDT documented as of this encounter Care Teams Extractions Technologist Relationship Specialty Start Date End Date Clinic, [facility] [address] [place] [address] PCP - General 01/19/11 09/20/13 Unknown, Provider [address] [place] [address] PCP - General 09/21/13 10/17/13 [facility], [facility] [address] [place] [address] 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
--- OUTSIDE RECORDS SUMMARY | 2024-08-15 17:50 | XMS_ITS | Clinical Summary ---
Author Organization [facility] Address [address] [place] [address] Care Team Providers Care Cooperative Education Director Name Role Phone [facility], [facility] C Primary Care Pro vider Source Comments [facility],non-owned Affiliates and Associated Physician Practices is amultiple site organization consisting of ambulatory clinics and hospital sitesin [place], [place], [place] and [place]. This disclosure is being madepursuant to the Care Everywhere program and may not contain all information available regarding this patient. Last updated 18.[facility] Allergies No known active allergies Medications * Be aware that medications may not be up to date on this document. Alwaysverify current medications with the patient. Medication Sig Dispensed Refills Start Date End Date Status methadone (DOLOPHINE) 10 MG tablet Take 100 mg by mouth once daily. Active Vit-Fe Swb-ML-Folpl (URIEL + DHA) 28-0.8 & 656 MG MISC Take 1 Tab by mouth once daily. 60 Each 2 09/21/2013 Active Active Problems Patient Care Coordination No te Formatting of this note migh t be different from the original. Pt. Needs GTT and MD appt. Has an US appt 11/09. If she keeps this appt PLEASE get other appts scheduled. Pt doesn't return our calls. Seems to just keep US appts. RELEASE OF INFORMATION IS SCANNED INTO [employer] FOR COMMUNICATION WITH AND FOR [facility]. THIS IS FOR TREATMENT OPTIONS AND MEDICATION DURING THIS . Problem Noted Date Diagnosed Date H/o LGA (large for gestational age) fetus 2011 Hepatitis C antibody test positive 01/21/2011 Overview (09/27/2013): quantitative not detectable genotyping indeterminate Supervision of high-risk of young yeimy igravida 01/19/2011 Overview (09/30/2013): A+/I/-/-, HIV NR HEP C AB + Pap: neg, neg HR HPV (h/o ASCUS) on 06/22 Gc/Chl: neg/neg UCx: neg Breast/Bottle Family Planning: Dating: week u/s Early GCT 130 History of x2 01/19/2011 Overview (09/21/2013): G1: Attempted to obtain records, apparently no records for patient (searched by SS #) at [place] or [facility] G2: rLTCS at 39w4d, no evidence of adhesive disease Methadone maintenance treatment complicating pre gnancy 01/19/2011 Overview (09/21/2013): H/o heroin abuse, last use 2008. Currently on 84mg daily [facility] Tobacco use complicating or childbirth 01/19/2011 Obesity 01/19/2011 Overview (09/21/2013): Body mass index is 39.98 kg/(m^2). Bipolar disorder 01/19/2011 Resolved Problems Problem Noted Date Diagnosed Date Resolved Date Encounter for health-related screening 04/17/2011 09/20/2013 Overview (08/28/2017): Sequential Screen: Negative IMO update 08 29 2017 Other nonspecific abnormal finding 01/19/2011 09/21/2013 Overview (02/06/2011): H/o colposcopy. Denies having a LEEP ASCUS pap on 01/19, needs colpo Immunizations Name Administration Dates Next Due DT 01/29/2011 HEP A VACCINE, ADULT 04/08/2009 HEP B VACCINE, PED/ADOL 09/21/2013 MMR 09/11/2011 TDAP (7yrs+) 09/09/2011 Social History Tobacco Use Types Packs/Day Years Used Date Smoking Tobacco: Every Day Cigarettes 1 17 Smokeless Tobacco: Never Tobacco Cessation:Ready to Q uit: No; Counseling Given: Yes Comments:1pack/day Alcohol Use Standard Drinks/Week Comments No 0 (1 standard drink = 0.6 oz pur e alcohol) Sex and Gender Information Value Date Recorded Sex Assigned at Not on file Gender Identity Not on file Sexual Orientation Not on file Last Filed Vital Signs Vital Sign Reading Time Taken Comments Blood Pressure 139/86 03/13/2021 2:00 PM CDT Pulse 84 03/13/2021 2:00 PM CDT Temperature 36.7 C (98.1 F) 03/13/2021 2:00 PM CDT Respiratory Rate 18 03/13/2021 2:00 PM CDT Oxygen Saturation 96% 03/13/2021 2:00 PM CDT Inhaled Oxygen Concentration - - Weight 124.7 kg (275 lb) 03/13/2021 2:00 PM CDT Height 165.1 cm (5' 5 ) 03/13/2021 2:00 PM CDT Body Mass Index 45.76 03/13/2021 2:00 PM CDT Plan of Treatment Health Maintenance Due Date Last Done Comments MAMMOGRAM 1980 HEPATITIS B VACCINE (1 of 3 - 19+ 3-dose series) 12/14/1999 09/21/2013 PNEUMOCOCCAL VACCINE (1 of 2 - PCV) 12/14/1999 PAP SMEAR 01/19/2014 01/19/2011, 01/19/2011 DTAP/TDAP/TD VACCINES (3 - Td or Tdap) 09/08/2021 09/09/2011, 01/29/2011 LIPID TESTING 11/13/2021 11/13/2016 COVID-19 VACCINE ( season) 2024 INFLUENZA VACCINE (#1) 2024 07/21/2013 MEDICARE AWV CALENDAR YEAR 2024 ZOSTER VACCINE (1 of 2) 2030 HIV SCREENING Completed 01/19/2011 HEPATITIS C SCREENING Completed 09/21/2013 , 09/21/2013, 01/29/2011, Additional history exists HIB VACCINE Aged Out No longer eligi ble based on patient's age to complete this topic HPV VACCINE Aged Out No longer eligi ble based on patient's age to complete this topic MENINGOCOCCAL (Group B) VACCINE SHARED DECISION-MAKING Aged Out No longer eligible based on patient's age to complete this topic MENINGOCOCCAL GROUPS A/C/Y/W VACCINE Aged Out No longer eligible based on patient's age to complete this topic Procedures Procedure Name Priority Date/Time Associated Diagnosis Comments HEPATITIS C GENOTYPE Routine 09/21/2013 11:42 AM CDT CYTOLOGY CERVICAL/VAG PAP SCREEN THIN PREP Today 01/19/2011 12:05 PM CDT HIV-1 HIV-2 ANTIBODY Today 01/19/2011 12:00 PM CDT from Last 3 Months or Most Recently Relevant to Health Maintenance Results * HEPATITIS C GENOTYPE (09/21/2013 11:42 AM CDT) Hepatitis C Genotype Indeterminate 09/25/2013 11:58 AM CDT [employer] Comment: Hepatitis C GENOTYPING IS INDETERMINATE. This test may be unsuccessful if the plasma HCV RNA viral load is less than log 2.8 or 600 IU per mL of plasma. Repeat testing may be appropriate if and when the viral load becomes greater than log 2.8 or 600 IU/mL. In addition to low viral load, other conditions, such as PCR inhibitors, viral genetic variation, etc., may cause RT-PCR failure resulting in an indeterminate result. INTERPRETIVE INFORMATION: Hepatitis C Genotyping Hepatitis C Viral RNA is tested using reverse switch cleaner polymerase chain reaction (RT-PCR) to amplify a specific portion of the 5' untranslated region (5' UTR) of the viral genome. The amplified nucleic acid is sequenced bi-directionally using dye-terminator chemistry (Stocard). Sequencing data is compared to a database of characterized sequences. Isolates of hepatitis C virus are grouped into six major genotypes (1-6). These genotypes are subtyped according to sequence characteristics. Due to high conservation of the 5' un-translated region of the HCV genome, this test has limitations in differentiating subtype 1a from 1b. Therefore, these subtypes will be reported as 1a or 1b. In rare instances, Type 6 virus may be misclassified as Type 1. Test developed and characteristics determined by [facility]. See Compliance Statement B: [email or web address] Blood specimen (specimen) BLOOD SPECIMEN / Unknown Venipuncture / Unknown 09/21/2013 11:42 AM CDT 09/21/2013 12:24 PM CDT Analilia Oconnor MD LAB - CHEMISTRY RJ KO Performing Organization Address City/[facility] Co de Phone Number [facility] [address] [place] [address] * CYTOLOGY CERVICAL/VAG SCREEN THIN PREP (01/19/2011 12:05 PM CDT) Comment Thin Prep [facility] Pap Smear Report See Scanned Report [facility] ENTIRE ENDOCERVIX / Unknown 01/19/2011 12:05 PM CDT 01/19/2011 2:40 PM CDT Narrative Resulting Agency Comment Performed By [facility]() [address] [place], [place] [address] Aubrey Ahmadi MD LAB - PATHOLOGY/CYTO LOGY ORDERABLES Performing Organization Address [facility] Co de Phone Number [facility] [address] [place] [address] * HIV-1 HIV-2 ANTIBODY (01/19/2011 12:00 PM CDT) HIV-1/HIV-2 Nonreactive Nonreactive [facility] BLOOD SPECIMEN / Unknown 01/19/2011 12:00 PM CDT 01/19/2011 2:50 PM CDT Aubrey Ahmadi MD LAB - CHEMISTRY RJ KO Performing Organization Address City/[facility] Co de Phone Number [facility] [address] [place] [address] from Last 3 Months or Most Recently Relevant to Health Maintenance Advance Directives * FULL RESUSCITATION (Latest Code Status on File) Date Activated Date Inactivated Comments 09/08/2011 1:25 PM 09/12/2011 12:44 AM Care Teams Cooperative Education Director Relationship Specialty Start Date End Date [facility], [facility] [address] [place] [address] [phone] PCP - General Shirring Machine Operator Automatic 03/13/21
--- OUTSIDE RECORDS SUMMARY | 2024-08-15 18:26 | XMS_ITS | Clinical Summary ---
Author Organization [facility] Address [address] [place] [address] Care Team Providers Care Risk Compliance Analyst Name Role Phone [facility], [facility] C Primary Care Pro vider Source Comments [facility],non-owned Affiliates and Associated Physician Practices is amultiple site organization consisting of ambulatory clinics and hospital sitesin [place], [place], [place] and [place]. This disclosure is being madepursuant to the Care Everywhere program and may not contain all information available regarding this patient. Last updated 18.[facility] Allergies No known active allergies Medications * Be aware that medications may not be up to date on this document. Alwaysverify current medications with the patient. Medication Sig Dispensed Refills Start Date End Date Status methadone (DOLOPHINE) 10 MG tablet Take 100 mg by mouth once daily. Active Vit-Fe Osa-FW-Xibds (URIEL + DHA) 28-0.8 & 656 MG [...] appts. RELEASE OF INFORMATION IS SCANNED INTO [email or web address] FOR COMMUNICATION WITH AND FOR [facility]. THIS IS FOR TREATMENT OPTIONS AND MEDICATION [...] for patient (searched by SS #) at [place] or [facility] G2: rLTCS at 39w4d, no evidence of adhesive disease Methadone maintenance treatment complicating pre gnancy 01/19/2011 Overview (09/21/2013): H/o heroin abuse, last use 2008. Currently on 84mg daily [facility] Tobacco use complicating or childbirth 01/19/2011 [...] C Genotype Indeterminate 09/25/2013 11:58 AM CDT [employer] Comment: Hepatitis C GENOTYPING IS INDETERMINATE. This [...] C Viral RNA is tested using reverse audioprosthologist polymerase chain reaction (RT-PCR) to amplify a specific portion of the 5' untranslated region (5' UTR) of the viral genome. The amplified nucleic acid is sequenced bi-directionally using dye-terminator chemistry (Scribd). Sequencing data is compared to a database [...] 1. Test developed and characteristics determined by [facility]. See Compliance Statement B: [email or web address] Blood specimen (specimen) BLOOD SPECIMEN / Unknown Venipuncture / Unknown 09/21/2013 11:42 AM CDT 09/21/2013 12:24 PM CDT Analilia Oconnor MD LAB - CHEMISTRY RJ KO Performing Organization Address City/[facility] Co de Phone Number [facility] [address] [place] [address] * CYTOLOGY CERVICAL/VAG SCREEN THIN PREP (01/19/2011 12:05 PM CDT) Comment Thin Prep [facility] Pap Smear Report See Scanned Report [facility] ENTIRE ENDOCERVIX / Unknown 01/19/2011 12:05 PM CDT 01/19/2011 2:40 PM CDT Narrative Resulting Agency Comment Performed By [facility]() [address] [place], [place] [address] Aubrey Ahmadi MD LAB - PATHOLOGY/CYTO LOGY ORDERABLES Performing Organization Address [facility] Co de Phone Number [facility] [address] [place] [address] * HIV-1 HIV-2 ANTIBODY (01/19/2011 12:00 PM CDT) HIV-1/HIV-2 Nonreactive Nonreactive [facility] BLOOD SPECIMEN / Unknown 01/19/2011 12:00 PM CDT 01/19/2011 2:50 PM CDT Aubrey Ahmadi MD LAB - CHEMISTRY RJ KO Performing Organization Address City/[facility] Co de Phone Number [facility] [address] [place] [address] from Last 3 Months or Most Recently Relevant to Health Maintenance Advance Directives * FULL RESUSCITATION (Latest Code Status on File) Date Activated Date Inactivated Comments 09/08/2011 1:25 PM 09/12/2011 12:44 AM Care Teams Risk Compliance Analyst Relationship Specialty Start Date End Date [facility], [facility] [address] [place] [address] [phone] PCP - General Motor Generator Set Operator 03/13/21
--- OUTSIDE RECORDS SUMMARY | 2024-08-15 18:26 | XMS_ITS | Encounter Summary ---
Author Organization [facility] Address [address] [place] [address] Care Team Providers Care Is Technician Name Role Phone Clinic, [facility] Primary Care Provider [phone] Unknown, Provider Primary Care Provider [facility], [facility] Primary Care Pro vider Reason for Visit * Reason Onset Date Comments General 07/31/2011 Pt states she re ceived a letter from the Methadone clinic stating our resident had informed them she thought the pt was over medicated. Pt is very upset and has requested to not have to see this resident again. (MF) Pt requested for Voting Machine Repairer to phone her back as well. Message passed on to Pam Trevino. Encounter Details Date Type Department Care Team (Late st Contact Info) Description 07/31/2011 Telephone [facility] [address] [place] [address] [address] [place] [address] Clinic, [facility] [address] [place] [address] General (Pt states she received a letter from the Methadone clinic stating our resident had informed them she thought the pt was over medicated. Pt is very upset and has requested to not have to see this resident again. (MF) Pt requested for Voting Machine Repairer to phone her back as well. Message [...] documented as of this encounter Care Teams Is Technician Relationship Specialty Start Date End Date Clinic, [facility] [address] [place] [id number] PCP - General 01/19/11 09/20/13 Unknown, Provider [address] [place] [id number] PCP - General 09/21/13 10/17/13 [facility], [facility] [address] [place] [phone] PCP - General Tube Room Cashier 03/13/21 documented as of this encounter
--- OUTSIDE RECORDS SUMMARY | 2024-08-15 18:26 | XMS_ITS | Clinical Summary ---
Author Organization [facility] Address [address], [place] [address] Phone Care Team Providers Care Finished Goods Inspector Name Role Phone Liana Reynoso MD Primary Care Provider Allergies No known active allergies Medications buPROPion XL (Wellbutrin XL) 300 MG 24 hr tablet TAKE 1 TABLET BY MOUTH ONCE A DAY FOR DEPRESSION 06/13/19 23 Active etonogestrel-elut ing contraceptive (Nexplanon) 68 MG implant Nexplanon 68 MG Subcutaneous Implant QTY: 0 implant Days: 0 Refills: 0 Written: 06/20/21 Patient Instructions: Placed 01/202106/20/19 22 Active methadone (Dolophine) 10 MG tablet Methadone HCl 10 MG Oral Tablet QTY: 0 tablet Days: 0 Refills: 0 Written: 06/20/21 Patient Instructions: 70 mg QD 06/20/19 22 Active Invega Sustenna 234 MG/1.5ML suspension prefilled syringe 08/12/19 23 Active senna (Senokot) 8.6 MG tablet TAKE 4 TABLETS BY MOUTH TWICE A DAY 08/02/19 23 Active levothyroxine (Synthroid, Levoxyl) 137 MCG tablet Take 137 mcg by mouth before breakfast. 90 tablet 1 08/29/19 23 Active fluticasone (Flonase) 50 MCG/ACT nasal sprayIndications: Allergic rhinitis, unspecified Administer 1 spray into each nostril in the morning. Shake gently. Before first use, prime pump. After use, clean tip and replace cap. 48 mL 1 12/23/19 23 Active Active Problems Problem Noted Date Diagnosed Date Encounter for surveillance o f implantable subdermal contraceptive 07/15/2021 Overview (08/14/2022): Nexplanon since 2020 Assessment & Plan (08/14/2022 1:12 PM CDT): - Patient wishes to discuss BTL, will refer to ObGyn - Due for pap, can complete at future ObGyn or PCP visit Constipation 07/15/2021 Obstructive sleep apnea syndrome 07/15/2021 Impaired glucose tolerance 06/20/2021 Nicotine dependence 06/20/2021 Hepatitis C virus infection cured after antiviral drug therapy 06/04/2019 Overview (08/14/2022): Note: negative RNA 02/2020 Hypothyroidism 05/11/2018 Assessment & Plan (08/14/2022 1:09 PM CDT): - On Levothyroxine 137 mcg daily, denies hyper- or hypothyroidism symptoms on current therapy - Yearly TSH today Opioid dependence 05/11/2018 Overview (08/14/2022): Note: Unchanged Schizoaffective disorder 05/11/2018 Overview (08/14/2022): Note: Unchanged Bipolar disorder 01/19/2011 Obesity 01/19/2011 Overview (08/14/2022): Comorbidities: JOSEE Assessment & Plan (08/14/2022 1:10 PM CDT): - Recommend 150 min of moderately vigorous exercise weekly - Recommend balanced diet, prioritizing vegetables, whole grains, healthy fats, seafood, and poultry - Has lost weight on Victoza in the past, can consider restarting in the future - Further discussion about weight management deferred today per patient preference Immunizations Immunization Administration Dates Next Due Hep A, Adult 06/20/2019, 9,04/08/2009,2008 Hep A, ped/adol, 2 dose 11/09/2000 Hep B, Adolescent or Pediatric 09/21/2013 Hep B, adult 08/14/2022 Influenza, injectable, quadr ivalent, preservative free 08/14/2022,03/12/2020,05/11/2018 MMR 09/11/2011 TD (adult), 2 Lf tetanus tox oid, preservative free, adsorbed 01/29/2011 Tdap 10/31/2020,09/09/2011,11/11/2007 Family History Medical History Relation Name Comments Breast cancer Neg Hx Colon cancer Neg Hx Diabetes Neg Hx Heart attack Neg Hx Hypertension Neg Hx Ovarian cancer Neg Hx Stroke Neg Hx Social History Tobacco Use Types Packs/Day Years Used Date Smoking Tobacco: Every Day Cigarettes Smokeless Tobacco: Never Tobacco Cessation:Ready to Q uit: Not Asked; Counseling Given: Not Answered Alcohol Use Standard Drinks/Week Comments Not Currently 0 (1 standard drink = 0.6 oz pur e alcohol) Intimate Partner Violence Answer Date R ecorded Feels physically and emotionally safe Not on yessi e 12/11/2023 Fear of partner Not on file 12/11/2023 Housing Stability Answer Date Recorded Housing situation Not on file 03/02/2022 Worried about losing housing Not on file 07/2021 Comments Unknown Sex and Gender Information Value Date Recorded Sex Assigned at Female 12/08/2022 9:41 AM EDT Legal Sex Female 4:07 PM EDT Gender Identity Female 03/01/2022 4:07 PM EDT Sexual Orientation Straight 03/01/2022 4: 07 PM EDT Last Filed Vital Signs Vital Sign Reading Time Taken Comments Blood Pressure 123/81 12/08/2022 8:47 AM CDT Pulse 80 12/08/2022 8:47 AM CDT Temperature 36.2 C (97.2 F) 08/27/2022 9:37 AM CDT Respiratory Rate - - Oxygen Saturation 100% 08/14/2022 10:00 AM CDT Inhaled Oxygen Concentration - - Weight 117 kg (258 lb 12.8 oz) 12/08/2022 8:47 A M CDT Height 165.1 cm (5' 5 ) 12/08/2022 8:47 AM CDT Body Mass Index 43.07 12/08/2022 8:47 AM CDT Plan of Treatment Health Maintenance Due Date Last Done Comments Medicare Annual Wellness (IPPE/AWV) 1980 Pneumococcal Vaccine: 0-49 Years (1 of 2 - PCV) 12/14/1999 Pap Smear 2001 Varicella Vaccines (1 of 2 - 13+ 2-dose series) 10/09/2011 Mammogram 2020 Hepatitis B Vaccines (2 of 3 - 19+ 3-dose series) 09/11/2022 08/14/2022, 09/21/2013 Diabetes: Hemoglobin A1C 08/15/2023 023, 06/20/2021, 03/12/2020 COVID-19 Vaccine ( season) 2024 11/29/2020, 10/31/2020 Influenza Vaccine (#1) 2024 , 03/12/2020, 05/11/2018 Diabetes Screening 08/14/2025 08/14/2022, 0 06/20/2021, 03/12/2020 Cervical Cancer Screening 07/15/2026 HPV/Cotest 07/15/2026 07/15/2021 DTaP/Tdap/Td Vaccines (5 - Td or Tdap) 10/31/2030 10/31/2020, 09/09/2011, 01/29/2011, Additional history exists Zoster Vaccines (1 of 2) 2030 MMR Vaccines Completed 09/11/2011 Hepatitis A Vaccines Completed 06/20/2019, 06/14/2018, 04/08/2009, Additional history exists HIV Screening Completed 07/15/2021, 03/12/2020 Hepatitis B Screening Completed 07/15/2021 , 03/13/2021, 03/12/2020, Additional history exists HIB Vaccines Aged Out No longer eligi ble based on patient's age to complete this topic HPV Vaccines Aged Out No longer eligi ble based on patient's age to complete this topic IPV Vaccines Aged Out No longer eligi ble based on patient's age to complete this topic Meningococcal B Vaccine Aged Out No l onger eligible based on patient's age to complete this topic Meningococcal Vaccine Aged Out No francis salvador eligible based on patient's age to complete this topic Rotavirus Vaccines Aged Out No longer eligible based on patient's age to complete this topic Procedures Procedure Name Priority Date/Time Associated Diagnosis Comments HEMOGLOBIN A1C Routine 08/14/2022 10:02 AM CDT Encounter for screening examination for impaired glucose regulation and diabetes mellitus THINPREP TIS AND HPV MRNA E6/E7 Routine 07/15/2021 4:35 PM WARBLE SAW OPERATOR HIV 1/2 ANTIGEN/ANTIBODY,FO URTH GENERATION W/RFL Routine 07/15/2021 4:34 PM WARBLE SAW OPERATOR HEPATITIS PANEL Routine 07/15/2021 4:34 PM WARBLE SAW OPERATOR from Last 3 Months or Most Recently Relevant to Health Maintenance Results * Hemoglobin A1c (08/14/2022 10:02 AM CDT) HEMOGLOBIN A1C 5.5 <5.7 % of total Hgb Comment: For the purpose of screening for the presence of diabetes: <5.7% Consistent with the absence of diabetes 5.7-6.4% Consistent with increased risk for diabetes (prediabetes) > or =6.5% Consistent with diabetes This assay result is consistent with a decreased risk of diabetes. Currently, no consensus exists regarding use of hemoglobin A1c for diagnosis of diabetes in children. According to [place] Diabetes Association (ADA) guidelines, hemoglobin A1c <7.0% represents optimal control in non- diabetic patients. Different metrics may apply to specific patient populations. Standards of Medical Care in Diabetes(ADA). Blood Venous blood specimen / Unknown 08/14/2022 10:02 AM CDT 08/14/2022 10:48 PM CDT us Gilma Chacon MD LAB BLOOD ORDERABLES Final Resul t [facility] 1 * (ABNORMAL) THINPREP TIS AND HPV MRNA E6/E7 (07/15/2021 4:35 PM WARBLE SAW OPERATOR) PAP SMEAR Negative for intraepithelial lesion or malignancy. [employer] REVIEW X RAY CONSULTANT ALEX Comment:MEF, CT(ASCP) CT scr eening location: [facility] [place] [address] [place] [address] COMMENT [facility] Comment:EXPLANATORY NOTE: Th e Pap is a screening test for cervical cancer. It is not a diagnostic test and is subject to false negative and false positive results. It is most reliable when a satisfactory sample, regularly obtained, is submitted with relevant clinical findings and history, and when the Pap result is evaluated along with historic and current clinical information. LMP NONE GIVEN [facility] SOURCE Vagina, Cervix, Endocervix [facility] COMMENT This Pap test has been evaluated with computer assisted technology. [facility] CLINICAL INFORMATION None given [facility] PREV. BX NONE GIVEN [facility] PREV. PAP NONE GIVEN [facility] STATEMENT OF ADEQUACY [facility] Comment:Satisfactory for shani luation. Endocervical/transformation zone component present. Age and/or menstrual status not provided X RAY CONSULTANT [facility] Comment:MLO, CT(ASCP) CT scr eening location: [place] [address] [place] [address] HPV RNA, HR E6/E7, TMA Detected(A) Not Detected [facility] Comment:Methodology: Transcr iption-Mediated Amplification This assay detects E6/E7 viral messenger RNA (mRNA) from 14 high-risk HPV types (16,18,31,33,35,39,45,51,52,56,58,59,66,68). The analytical performance characteristics of this assay have been determined by [employer]. The modifications have not been cleared or approved by the FDA. This assay has been validated pursuant to the CLIA regulations and is used for clinical purposes. For additional information, please refer to http://education.Vaddio.ComVibe/faq/MIQ935r6 (This link if provided for information/ educational purposes only.) 07/15/2021 4:35 PM WARBLE SAW OPERATOR 07/15/2021 4:35 PM WARBLE SAW OPERATOR us Gilma Chacon MD LAB MICROBIOLOGY - GENERAL ORDER BARBARA Final Result [facility] * HIV 1/2 ANTIGEN/ANTIBODY,FOURTH GENERATION W/RFL (07/15/2021 4:34 PM WARBLE SAW OPERATOR) HIV 1/2 AG/AB NON-REACT SHELLEY NON-REACT SHELLEY [facility] Comment:HIV-1 antigen and HI V-1/HIV-2 antibodies were not detected. There is no laboratory evidence of HIV infection. PLEASE NOTE: This information has been disclosed to you from records whose confidentiality may be protected by state law. If your state requires such protection, then the state law prohibits you from making any further disclosure of the information without the specific written consent of the person to whom it pertains, or as otherwise permitted by law. A general authorization for the release of medical or other information is NOT sufficient for this purpose. For additional information please refer to http://ChipRewards.Vaddio.ComVibe/faq/FYH727 (This link is being provided for informational/ educational purposes only.) The performance of this assay has not been clinically validated in patients less than 2 years old. 07/15/2021 4:34 PM WARBLE SAW OPERATOR 07/15/2021 4:34 PM WARBLE SAW OPERATOR Gilma Chacon MD LAB BLOOD ORDERABLES Final Resul t Performing Organization Address [facility] de Phone Number [facility] * (ABNORMAL) HEPATITIS PANEL (07/15/2021 4:34 PM WARBLE SAW OPERATOR) HEPATITIS C AB REACTIVE( A) NON-REACT SHELLEY [facility] HEPATITIS A AB REACTIVE( A) NON-REACT SHELLEY [facility] Comment:For additional infor mation, please refer to http://ChipRewards.Vaddio.ComVibe/faq/XLF138 (This link is being provided for informational/ educational purposes only.) HEPATITIS B CORE AB NON-REACT SHELLEY NON-REACT SHELLEY [facility] HEPATITIS B SURFACE AG NON-REACT SHELLEY NON-REACT SHELLEY [facility] SIGNAL TO CUT-OFF 10.30(H) <1.00 [facility] Comment:Based on this result , the sample will be tested for HCV RNA by a Nucleic Acid Amplification Test (NAAT) to determine if the patient has a current active infection. HEPATITIS B SURF AB REACTIVE( A) NON-REACT SHELLEY [facility] 07/15/2021 4:34 PM WARBLE SAW OPERATOR 07/15/2021 4:34 PM WARBLE SAW OPERATOR us Gilma Chacon MD LAB BLOOD ORDERABLES Final Resul t Performing Organization Address [facility] Co de Phone Number [facility] from Last 3 Months or Most Recently Relevant to Health Maintenance Insurance [employer] [place] Care Teams Finished Goods Inspector Relationship Specialty Start Date End Date Liana Reynoso MD [address] [place] [id number] PCP - General Internal Medicine 11/25/22
== END 2024-08-15 18:32 | disposition left against medical advice (07) ==
LOC: ANHED 18:25
PROVIDERS: Student in an Organized Health Care Education/Training Program; Emergency Provider Physician Assistant
DX: R07.9 Chest pain, unspecified (principal); F17.210 Nicotine dependence, cigarettes, uncomplicated
CPT/HCPCS: 36415; 71046; 80053; 83690; 84484; 85025; 85610; 85730; 93005; 99284